=== PATIENT | female | born 2000 | race Two or more races ===

== ENCOUNTER 2024-06-07 09:07 | Emergency (ER) | payer OTHER ==
[~2024-06-07] VITALS: Ht 154.9 cm; Wt 58.1 kg
[2024-06-07 10:00] LABS: HEMATOCRIT 36.4 % (36.0-45.00); HEMOGLOBIN 12.8 g/dL (12.0-15.00); MEAN CELL VOLUME 87.5 fL (80.00-100.00); MEAN CORPUSCULAR HEMOGLOBIN 30.7 pg (27.00-32.0); MEAN CORPUSCULAR HGB CONC 35.1 g/dl (32.0-36.0); PLATELET COUNT 271 K/uL (150-450); RED BLOOD COUNT 4.16 M/uL (4.00-6.00); RED CELL DISTRIBUTION WIDTH 12.7 % (11.5-14.5)
[2024-06-07 10:35] LABS: URINE APPEARANCE Clear; URINE BILIRRUBIN Negative (NEGATIVE); URINE BLOOD Small; URINE COLOR Yellow; URINE GLUCOSE Negative (NEGATIVE); URINE KETONE Negative (NEGATIVE); URINE LEUKOCYTE Negative; URINE NITRATE Negative; URINE PROTEIN Negative (NEGATIVE); URINE UROBILINOGEN 0.2 E.U./dl
[2024-06-07 10:39] LABS: URINE BACTERIA 251.9 uL (0.0-1933); URINE EPITHELIAL CELLS 5.8 uL (0.0-38.8); URINE RBC 29.6 uL (0.0-20.8)
== END 2024-06-07 15:11 | disposition home or self-care (01) ==
LOC: ER 09:09
PROVIDERS: General Practice
DX: O20.9 Hemorrhage in early pregnancy, unspecified (principal); Z3A.01 Less than 8 weeks gestation of pregnancy

== ENCOUNTER 2025-01-19 08:30 | Inpatient (IN) | payer OTHER ==
[~2025-01-19] VITALS: Ht 154.9 cm; Wt 3.2 kg
[2025-01-19] MEDS ORDERED: PRENATE ELITE1 EAC2 PO (12:57)
[2025-01-19 13:32] LABS: HEMATOCRIT 35.3 % (36.0-45.00); HEMOGLOBIN 12.1 g/dL (12.0-15.00); MEAN CELL VOLUME 92.3 fL (80.00-100.00); MEAN CORPUSCULAR HEMOGLOBIN 31.7 pg (27.00-32.0); MEAN CORPUSCULAR HGB CONC 34.3 g/dl (32.0-36.0); PLATELET COUNT 216 K/uL (150-450); RED BLOOD COUNT 3.82 M/uL (4.00-6.00); RED CELL DISTRIBUTION WIDTH 13.2 % (11.5-14.5)
[2025-01-19 13:35] LABS: URINE APPEARANCE Turbid; URINE BILIRRUBIN Negative (NEGATIVE); URINE BLOOD Negative; URINE COLOR Yellow; URINE GLUCOSE Negative (NEGATIVE); URINE KETONE Negative (NEGATIVE); URINE LEUKOCYTE Negative; URINE NITRATE Negative; URINE PROTEIN Trace (NEGATIVE)
[2025-01-19 13:38] LABS: URINE BACTERIA 359.7 uL (0.0-1933); URINE RBC 5.4 uL (0.0-20.8); URINE WBC 10.1 uL (0.0-23.2)
[2025-01-19 13:52] LABS: URINE EPITHELIAL CELLS > 201.7 uL (0.0-38.8)
[2025-01-19 13:54] LABS: URINE CRYSTALS MANY /HPF; URINE EPITHELIAL CELLS LOADED /HPF
[2025-01-19 13:57] LABS: INR 0.99; PARTIAL THROMBOPLASTIN TIME 26.2 SECONDS (22.0-34.0); PROTHROMBIN TIME 10.8 SECONDS (9.0-11.5)
[2025-01-19 15:07] LABS: RH POSITIVE
[2025-01-25 09:44] VITALS: BP 100/67
[2025-01-25] MEDS ORDERED: CEFOXITIN SODIUM 2,000 MG VIAL IV ONE (14:28)
[2025-01-25] MEDS ORDERED: OXYTOCIN 10 UNITS/ML VIAL ONE ×2 (16:09→20:40)
[2025-01-25] MEDS ORDERED: ERYTHROMYCIN BASE OPHT 1GM EACH TUBE OP ONE (16:09)
[2025-01-25] MEDS ORDERED: KETOROLAC TROMETHAMINE 60 MG VIAL IM STA (18:05)
[2025-01-25] MEDS ORDERED: OXYTOCIN 1,000 ML IV SCH (18:15)
[2025-01-25] MEDS ORDERED: RINGERS SOLUTION,LACTATED 1,000 ML IV SCH (18:15)
[2025-01-25] MEDS ORDERED: CHLORHEXIDINE GLUCONATE 120 ML BOTTLE TP SCH (18:15)
[2025-01-25] MEDS ORDERED: MORPHINE SULFATE 4 MG/ML CARTRIDGE IV PRN (18:15)
[2025-01-25] MEDS ORDERED: MORPHINE SULFATE 4 MG/ML VIAL IV ONE (18:30)
[2025-01-25] MEDS ORDERED: KETOROLAC TROMETHAMINE 60 MG VIAL IM ONE (19:48)
[2025-01-25 20:05] LABS: BASO % 0.2 % (0.1-1.2); EOS # 0.02 (0.04-0.54); EOS % 0.2 % (0.7-7.0); HEMATOCRIT 33.6 % (34.1-44.9); HEMOGLOBIN 11.1 g/dL (11.2-15.7); LYMPH # 1.68 (1.18-3.74); LYMPH % 16.2 % (19.3-53.1); MEAN CORPUSCULAR HEMOGLOBIN 30.4 pg (25.6-32.2); MONO # 0.54 (0.24-0.82); MONO % 5.2 % (4.7-12.5); NEUT # 8.06 (1.56-6.13); NEUT % 77.7 % (34.0-71.1); PLATELET COUNT 198 K/uL (163-369); RED BLOOD COUNT 3.65 M/uL (3.93-5.22); RED CELL DISTRIBUTION WIDTH 12.6 % (11.6-14.4)
[2025-01-25 21:33] VITALS: BP 113/63
[2025-01-26 01:47] VITALS: BP 106/66
[2025-01-26 08:00] VITALS: BP 102/64
[2025-01-26] MEDS ORDERED: ACETAMINOPHEN WITH CODEINE 1 UDTAB TABLET PO PRN (09:00)
[2025-01-26 17:02] VITALS: BP 90/60
[2025-01-27 02:44] VITALS: BP 100/60
[2025-01-27 08:00] VITALS: BP 95/60
== END 2025-01-27 12:48 | disposition home or self-care (01) | DRG 788 ==
LOC: OB/GYN 01-25 08:30 → O/R 01-25 09:12 → OB/GYN 01-25 09:12
PROVIDERS: ADMIT Obstetrics & Gynecology; ATTEND Obstetrics & Gynecology
PROC: 4A1HXCZ Monitoring of Products of Conception, Cardiac Rate, External Approach (ICD-10-PCS; 2025-01-25)
PROC: 10D00Z1 Extraction of Products of Conception, Low, Open Approach (ICD-10-PCS; principal; 2025-01-25 10:30)
DX: O34.211 Maternal care for low transverse scar from previous cesarean delivery (principal); Z3A.39 39 weeks gestation of pregnancy; Z37.0 Single live birth